=== PATIENT | male | born 1970 | race Caucasian/White ===

== ENCOUNTER 2021-05-15 11:06 | Emergency (ER) | payer BC, SELFPAY ==
--- NOTE | 2021-05-15 11:13 | ED.SKABFB ---
HPI - Skin/Abscess/Foreign Bdy General Chief complaint: Skin/Abscess/Foreign Body Stated complaint: RED SPOT ON R FOREARM Time Seen by Provider: 05/15/21 11:08 Source: patient and RN notes reviewed Mode of arrival: ambulatory Limitations: no limitations History of Present Illness HPI narrative: 50-year-old male presents to the [facility] with a red fluctuant area to the right forearm. states that it has been there a couple days. No treatment [employer] MD complaint: abscess/boil Related Data Allergies Allergy/AdvReac Type Severity Reaction Status Date / Time No Known Allergies Allergy Verified 03/12/18 08:30 Review of Systems Review of Systems: All systems reviewed & are unremarkable except as noted in HPI and below Constitutional: Constitutional: Reports no additional constitutional complaints, Denies chills and Denies fever(s) Eyes: Eyes: Reports no additional eye complaints ENT: Reports system reviewed and no additional complaints, except as documented Cardiovascular: Cardiovascular: Reports no additional cardiovascular complaints and Denies chest pain Respiratory: Respiratory: Reports no additional respiratory complaints and Denies cough Gastrointestinal: Gastrointestinal: Reports no additional gastrointestinal complaints and Denies abdominal pain Musculoskeletal: Musculoskeletal: Reports no additional musculoskeletal complaints Integumentary/Breasts: Skin/Breast: Reports as per HPI and Reports erythema (right forearm) Neurologic: Reports system reviewed and no additional complaints, except as documented Psychiatric: Psychiatric: Reports no additional psychiatric complaints Allergic/Immunologic: Allergic/Immunologic: Reports no additional allergic/immunologic complaints PMFSH Past Medical History Medical History (Updated 05/15/21 @ 12:05 by Martha Barraza) No significant medical problems Surgical History Surgical History (Updated 05/15/21 @ 11:16 by Martha Barraza) History of appendectomy Social History Social History (Updated 05/15/21 @ 11:16 by Martha Barraza) Gender identity (if verbalized by the patient): Male Comments At the time of my signature, I reviewed and agree with the nursing past medical, surgical, social, and family history. There is no relevant family history pertinent to the patient complaint. Exam Const: General: healthy appearing, no acute distress and alert Nutritional Appearance: well nourished Orientation/consciousness: patient oriented x3 Limitations: no limitations HENMT: Head: normal to inspection Eyes: Conjunctivae: conjunctivae normal Pupils: Equal, round and reactive pupils present Neck: Neck: normal visual inspection, no lymphadenopathy and no meningeal signs Chest: Chest palpation & inspection: normal inspection of the chest Resp: Effort & Inspection: normal respiratory effort Auscultation: clear to auscultation bilaterally Back/Spine/Pelvis: Back: no CVA tenderness Skin: Other: right mid forearm 2cm / 2cm fluctuant, red raised area Neuro: General: patient oriented x3, moves all extremities, no meningeal signs and no focal motor deficits Speech: normal speech Gait exam (Neuro): Normal gait present Extrem: General: normal to inspection and no pedal edema Psych: Appearance: grossly normal and well kempt Mental Status: mental status grossly normal Affect: normal affect Attitude: cooperative Thought content: Yes Normal thought content present Course Course Emergency Course: 1125: Bone cleaning up the I&D patient became pale, clammy complaining of nausea. Denies chest pain or shortness of breath. No dizziness. Patient was laid flat in Trendelenburg. Vitals checked patient was hypotensive. EKG done, and IV started with 1L NS. Patient had no other complaints at this time. Tried to give IV fluids, cool compresses to improve patient. Has no cardiac history. At no time had numbness or tingling, chest pain, shortness of breath. 1158 patient states that
[2021-05-15 11:14] VITALS: BP 162/108; PULSE 99; RESP 20; TEMP 36.4; O2SAT 100
[2021-05-15] MEDS: ONDANSETRON HCL ODT 4 MG TABLET PO (11:58)
--- NOTE | 2021-05-15 12:14 | ECG_ITS ---
Measurements Intervals [place] Rate: 67 P: 5 MI: 125 QRS: 73 QRSD: 94 T: 47 QT: 410 QTc: 434 Interpretive Statements SINUS RHYTHM INCOMPLETE RIGHT BUNDLE BRANCH BLOCK BASELINE ARTIFACT- I, III, AVR, AVL, AVF, V1-V4 BORDERLINE ECG Electronically Signed On 05-15-2021 12:55:59 CDT by Sunil Erickson D.O.
--- NOTE | 2021-05-15 12:50 | PC.NURSE ---
1120 I and D done by RECOVERY RN. Patient became very pale and diaphoretic. No chest pain. Placed in supine position. Cool rags to face. B/P 97/57. Complains of being nauseated. Verbal order received for zofran. Dressing in place to arm as I and D is completed. 1125 Zofran 4 mg given ODT 1130 B/P 88/50. Remains pale and diaphoretic. Verbal order received for IV insertion. 1130 IV #20 inserted per 1 attempt into left hand. 1000 ml NS hung to infuse. Tolerated insertion of IV without difficulty. EKG done. 1141 113/68. Feels better at this time. No more nausea 1153 Color is back. Feels much improved. IV continues to infuse without difficulty. No distress. 1220. IV infusing. orthostatics done.
[2021-05-15 12:53] VITALS: BP 135/86; PULSE 76
[2021-05-15 12:54] VITALS: BP 135/90; BP 138/83; PULSE 86; PULSE 93
== END 2021-05-15 12:30 | disposition home or self-care (01) ==
PROVIDERS: Emergency Provider Nurse Practitioner
DX: R55 Syncope and collapse (principal); L02.413 Cutaneous abscess of right upper limb; I95.9 Hypotension, unspecified
CPT/HCPCS: 10060; 87070; 87075; 87147; 87186; 87205; 93005; 99203; A9270; G0463; J7030